=== PATIENT | female | born 1995 | race Caucasian/White ===

== ENCOUNTER 2017-05-30 13:11 | Emergency (ER) | payer OTHER ==
[~2017-05-30] VITALS: Ht 167.6 cm; Wt 133.9 kg
[~2017-05-30 13:11] MED LIST: PHENTERMINE H37.5 MG PO
[2017-05-30] MEDS ORDERED: PREDNISONE20 MG PO (14:15)
[2017-05-30] MEDS ORDERED: PEPCID20 MG PO (14:15)
[2017-05-30 15:28] VITALS: BP 110/68
== END 2017-05-30 15:28 | disposition home or self-care (01) ==
LOC: EME 13:11
DX: T78.40XA Allergy, unspecified, initial encounter (principal); J45.909 Unspecified asthma, uncomplicated
CPT/HCPCS: 93005; 99281; 99283; J7512